=== PATIENT | female | born 1995 | race Caucasian/White ===

== ENCOUNTER 2019-05-07 11:11 | Emergency (ER) | payer OTHER, SELFPAY ==
[2019-05-07 11:39] VITALS: BP 129/74; PULSE 113; RESP 16; TEMP 39.2; O2SAT 96
--- NOTE | 2019-05-07 11:57 | ED.URI ---
HPI - URI/Sore Throat General Chief Complaint: Upper Respiratory Infection Stated Complaint: Sore throat, fever, nausea Time Seen by Provider: 05/07/19 11:55 Source: patient and RN notes reviewed Mode of arrival: ambulatory Limitations: no limitations History of Present Illness HPI Narrative: 23-year-old female presents with concern for fever up to 103, sore throat, nausea, vomiting reports symptoms started yesterday. Reports taking motrin. MD elicited complaint: sore throat Related Data Home Medications Medication Instructions Recorded Confirmed levonorgestrel [Mirena] 1 device INTRAUTERINE ONCE 05/07/19 05/07/19 Allergies Allergy/AdvReac Type Severity Reaction Status Date / Time No Known Allergies Allergy Unverified 05/07/19 11:44 Review of Systems Review of Systems: Narrative: CONSTITUTIONAL: Reports malaise, chills, sweats, or fever. EYES: Denies visual changes, redness, or discharge. ENT: Denies rhinorrhea, congestion, sinus pain, otalgia. Reports sore throat. CARDIOVASCULAR: Denies chest pain, palpitations, or edema. RESPIRATORY: Reports cough, chest congestion. Denies dyspnea. GASTROINTESTINAL: Denies abdominal pain, diarrhea. Reports nausea and vomiting SKIN: Denies rash or itching. MUSCULOSKELETAL: Reports myalgia. NEUROLOGIC: Denies headache. All systems reviewed & are unremarkable except as noted in HPI and below PMFSH Social History Social History Gender identity (if verbalized by the patient): Female Comments At time of signature, agree with nursing past medical, surgical, social and family history. There is no relevant family history pertinent to the presenting complaint Exam Narrative: Exam Narrative: GENERAL: Well-appearing, well-nourished, and in no acute distress. HEAD: Normocephalic, atraumatic. EYES: PERRLA, conjunctivae clear, and EOMI. ENT: Nares clear, turbinates erythematous, clear discharge. Mucous membranes moist. TM pearly farias with dull light reflex bilaterally; no tragal tenderness. Oropharynx erythematous without lesions. Tonsils not enlarged and without exudate, no drooling, no hoarseness, no trismus. NECK: Supple. No lymphadenopathy CHEST: Clear to auscultation, breath sounds equal. No wheezing, rhonchi, rales, or stridor. No respiratory distress, speaks in full sentences. HEART: Regular rate and rhythm. No murmur heard. Normal peripheral pulses. Abdomen: Soft, nontender, normal active bowel sounds SKIN: Warm, dry, no rash. NEURO: Alert and oriented x3. PSYCH: Normal mood and affect Course Course Emergency Course: Patient is aware of diagnosis, understands and agrees to treatment plan. Anticipatory guidance given. Patient agrees to follow-up as directed and is aware of reasons to seek care at the emergency department. Portions of this record may have been created with voice recognition software Vital Signs Vital signs: Vital Signs Temperature 102.5 F H 05/07/19 11:39 Pulse Rate 113 H 05/07/19 11:39 Respiratory Rate 16 05/07/19 11:39 Blood Pressure 129/74 05/07/19 11:39 Pulse Oximetry 96 05/07/19 11:39 Temperature 102.5 F H 05/07/19 11:39 Pulse Rate 113 H 05/07/19 11:39 Respiratory Rate 16 05/07/19 11:39 Blood Pressure 129/74 05/07/19 11:39 Pulse Oximetry 96 05/07/19 11:39 Reviewed. Patient has been instructed to follow up with her primary care provider within the next week regarding her elevated blood pressure today. MDM - URI/Sore Throat MDM Narrative Medical decision making narrative: Differential diagnosis considered: Strep pharyngitis, allergic rhinitis, upper respiratory tract infection, sinusitis, rhinosinusitis, nasopharyngitis. viral pharyngitis, otitis media, otitis externa, pneumonia, bronchitis, viral cough syndrome, viral syndrome, and influenza. Exam findings show no acute concerns or changes; patient is non-toxic appearing and is in no distress. Patient is appropriate for outpatient treatment and follow-up. Lab Data Attest
== END 2019-05-07 12:14 | disposition home or self-care (01) ==
PROVIDERS: Emergency Provider Nurse Practitioner; PCP Family Medicine
DX: B34.9 Viral infection, unspecified (principal)
CPT/HCPCS: 87081; 87804; 87880; 99213; G0463

== ENCOUNTER → 2020-09-20 06:43 | Outpatient (CLI) | payer SELFPAY ==
[2020-09-20 18:47] LABS: SARS-CoV-2 RNA PCR Negative
== END ==
PROVIDERS: PCP Family Medicine; Visit Provider Family Medicine
DX: R68.89 Other general symptoms and signs (principal); Z20.822 Contact with and (suspected) exposure to COVID-19
CPT/HCPCS: C9803; U0003; U0005

== ENCOUNTER 2021-07-23 10:20 | Outpatient (CLI) | payer OTHER, SELFPAY ==
--- NOTE | ~2021-07-23 | XR_ITS ---
EXAMINATION: XR thoracic spine 2V, XR lumbar spine 2-3V DATE: 07/23/2021 10:45 INDICATION: Thoracic and lumbar back pain TECHNIQUE: 1. One AP, lateral and lateral swimmer's views of the thoracic spine were obtained. 2. AP, lateral and coned-down lateral lumbosacral views of the lumbar spine were obtained. COMPARISON: None. FINDINGS: Thoracic spine: 8 degree dextrocurvature between T5 and T12. There is straightening of the normal slight kyphosis in the mid to upper thoracic spine. Vertebral body heights are normal. Mild degenerative endplate change s at a few levels in the thoracic spine with relatively preserved disc heights. Visualized portion of the lungs are clear. Cardiomediastinal silhouette is normal. Lumbar spine: Alignment is normal. Vertebral body and disc heights are normal. No appreciable facet osteoarthritis. Sacrum and bilateral sacroiliac joints are normal. T-shaped IUD projecting over expected position in the central pelvis. Normal bowel gas pattern. IMPRESSION: 1. Mild thoracic dextrocurvature with negligible spondylosis. 2. Normal lumbar spine. 2. IUD in expected position. Reviewed, dictated and finalized at location A. IMPRESSION: 1. Mild thoracic dextrocurvature with negligible spondylosis. 2. Normal lumbar spine. 2. IUD in expected position.
== END 2021-07-23 10:21 | disposition home or self-care (01) ==
LOC: ANHIMG 10:27
PROVIDERS: PCP Physician Assistant; Visit Provider Physician Assistant
DX: M54.50 Low back pain, unspecified (principal); M54.6 Pain in thoracic spine; Z97.5 Presence of (intrauterine) contraceptive device
CPT/HCPCS: 72070; 72100

== ENCOUNTER 2023-02-22 16:56 | Emergency (ER) | payer OTHER, BC, SELFPAY ==
--- NOTE | 2023-02-22 17:04 | ED.URI ---
HPI - URI/Sore Throat General Chief Complaint: Upper Respiratory Infection Stated Complaint: Sinus/Sore Throat Time Seen by Provider: 02/22/23 17:22 Source: patient and RN notes reviewed Mode of arrival: ambulatory Limitations: no limitations History of Present Illness HPI Narrative: 27-year-old female presents with concern for one-week history of sinus congestion, drainage, cough, difficulty taking a full breath, chills, sweats. She reports she has been taking [id number] medications without relief. MD elicited complaint: cough and sore throat Related Data Home Medications Medication Instructions Recorded Confirmed levonorgestrel 21 mcg/24 hours (8 1 device intrauterine ONCE 05/07/19 02/22/23 yrs) 52 mg intrauterine device (Mirena) Allergies Allergy/AdvReac Type Severity Reaction Status Date / Time No Known Allergies Allergy Unverified 01/05/22 15:46 Review of Systems Review of Systems: CONSTITUTIONAL: Reports malaise, chills, sweats EYES: Denies visual changes, redness, or discharge. ENT: Reports rhinorrhea, congestion, and sore throat. CARDIOVASCULAR: Denies chest pain, palpitations, or edema. RESPIRATORY: Reports cough, difficulty taking a full breath. GASTROINTESTINAL: Denies abdominal pain, nausea, vomiting, diarrhea SKIN: Denies rash or itching. MUSCULOSKELETAL: Reports myalgia. NEUROLOGIC: Denies headache. All systems reviewed & are unremarkable except as noted in HPI and below PMFSH Family History Family History (Updated 01/06/22 @ 14:23 by Christopher Tiwari PA-C) Mother Ovarian cancer Other Esophageal cancer Father Cerebrovascular accident Social History Social History Smoking status: Never smoker Alcohol intake: current Substance use: never Living arrangements: with family Occupation/Education: occupation Gender identity (if verbalized by the patient): Female Sexual Orientation (if Verbalized by the Patient): Straight or Heterosexual Spiritual care concerns: No Comments At time of signature, agree with nursing past medical, surgical, social and family history. There is no relevant family history pertinent to the presenting complaint Exam Narrative: GENERAL: Well-appearing, well-nourished, and in no acute distress. HEAD: Normocephalic EYES: PERRLA, conjunctivae clear ENT: Nares clear, turbinates edematous and erythematous, clear discharge. Mucous membranes moist. TM pearly farias with dull light reflex bilaterally; no tragal tenderness. Oropharynx not erythematous without lesions. Tonsils not enlarged and without exudate, no drooling, no hoarseness, no trismus, uvula midline. NECK: Supple. No lymphadenopathy CHEST: Clear to auscultation, breath sounds equal. No wheezing, rhonchi, rales, or stridor. No respiratory distress, speaks in full sentences. HEART: Regular rate and rhythm. No murmur heard. SKIN: Warm, dry, no rash. NEURO: Alert and oriented x3. PSYCH: Normal mood and affect Course Course Emergency Course: Patient is aware of diagnosis, understands and agrees to treatment plan. Anticipatory guidance given. Patient agrees to follow-up as directed and is aware of reasons to seek care at the emergency department. Portions of this record may have been created with voice recognition software Level of Care: Express Care Visit Vital Signs Vital signs: Reviewed. MDM - URI/Sore Throat MDM Narrative Medical decision making narrative: Differential diagnosis considered: Witt virus, strep pharyngitis, allergic rhinitis, upper respiratory tract infection, sinusitis, rhinosinusitis, nasopharyngitis. viral pharyngitis, otitis media, otitis externa, pneumonia, bronchitis, viral cough syndrome, viral syndrome, and influenza. Exam findings show no acute concerns or changes; patient is non-toxic appearing and is in no distress. Patient is appropriate for outpatient treatment and follow-up. Lab Data Att
[2023-02-22 17:10] VITALS: BP 114/63; PULSE 97; RESP 16; TEMP 37; O2SAT 98
== END 2023-02-22 17:35 | disposition home or self-care (01) ==
PROVIDERS: Emergency Provider Nurse Practitioner; PCP Physician Assistant
DX: J06.9 Acute upper respiratory infection, unspecified (principal)
CPT/HCPCS: 87081; 87880; 99213; G0463